=== PATIENT | male | born 1945 | race Caucasian/White ===

== ENCOUNTER 2017-07-19 19:40 | Emergency (ER) | payer MEDICARE ==
[~2017-07-19] VITALS: Ht 175.3 cm; Wt 79.4 kg
--- NOTE | ~2017-07-19 | CR127 ---
[facility]. [facility] A Service of [facility] & [facility] RADIOLOGY TEXT RESULTS PATIENT: BELKYS LEMUS LOCATION: SED : 44 UNIT #: [id number] AGE: [address]: Rose Sal MD SEX: M ORDER DR: [id number] [place] [id number] E MR#: [id number] Acc #: [id number] NAME: BELKYS LEMUS : 1945 SEX: M STUDY DATE/TIME: 07/19/2017 21:01 UNIT: SED ROOM: STUDY DESCRIPTION: CR Foot Complete Min 3 View Rt Attending Physician: Rose Sal M.D. Ordering Physician: Rose Sal M.D. Primary Care Physician: Allen Flynn M.D. MEDICAL IMAGING REPORT This report is preliminary unless electronic signature is present. EXAM Right foot 3 views HISTORY Foot pain for 1 week after injury. Bruising. FINDINGS The tarsal, metatarsal, and phalangeal elements are all anatomically normal in position and alignment. There are no articular defects. No fractures or radiopaque foreign bodies in the soft tissues are apparent. IMPRESSION Normal foot. Dictated by... Parrish Sanchez M.D. THIS IS AN ELECTRONICALLY VERIFIED REPORT Parrish Sanchez M.D. at 07/20/2017 2:21 PM DFL/aa TD: 07/20/2017 08:49 JOB #: [id number] MEDICAL IMAGING REPORT Page 1 of 1
--- NOTE | ~2017-07-19 | CR21 ---
[facility]. [facility] A Service of [facility] & [facility] RADIOLOGY TEXT RESULTS PATIENT: BELKYS LEMUS LOCATION: SED : 44 UNIT #: [id number] AGE: [address]: Rose Sal MD SEX: M ORDER DR: [id number] [place] [id number] E MR#: [id number] Acc #: [id number] NAME: BELKYS LEMUS : 1945 SEX: M STUDY DATE/TIME: 07/19/2017 21:01 UNIT: SED ROOM: STUDY DESCRIPTION: CR Ankle Min 3 Views Rt Attending Physician: Rose Sal M.D. Ordering Physician: Rose Sal M.D. Primary Care Physician: Allen Flynn M.D. MEDICAL IMAGING REPORT This report is preliminary unless electronic signature is present. EXAM Right ankle 3 views. HISTORY Ankle pain and swelling after injury 1 week ago. Bruising. FINDINGS AP, lateral, and oblique projections of the right ankle show satisfactory integrity of the joint mortise with a smooth articular surface. There is no identifiable fracture, dislocation, or radiopaque foreign body. IMPRESSION Normal right ankle. Dictated by... Parrish Sanchez M.D. THIS IS AN ELECTRONICALLY VERIFIED REPORT Parrish Sanchez M.D. at 07/20/2017 2:21 PM DFL/gz TD: 07/20/2017 08:38 JOB #: [id number] MEDICAL IMAGING REPORT Page 1 of 1
--- NOTE | ~2017-07-19 | US85 ---
[facility] A Service of [facility] RADIOLOGY TEXT RESULTS PATIENT: BELKYS LEMUS LOCATION: SED : 44 UNIT #: [id number] AGE: [address]: Rose Sal MD SEX: M ORDER DR: [id number] [address] [address] [id number] E MR#: [id number] Acc #: [id number] NAME: BELKYS LEMUS : 1945 SEX: M STUDY DATE/TIME: 07/19/2017 21:39 UNIT: SED ROOM: STUDY DESCRIPTION: [facility] St[facility] Attending Physician: Rose Sal M.D. Ordering Physician: Rose Sal M.D. Primary Care Physician: Allen Flynn M.D. MEDICAL IMAGING REPORT This report is preliminary unless electronic signature is present. EXAM Right lower extremity venous ultrasound. HISTORY Right lower extremity pain and swelling for 1 week. Bruising and swelling at ankle for 1 day. TECHNIQUE Venous ultrasound examination of the right lower extremity was performed using grayscale, spectral Doppler and color flow Doppler imaging. FINDINGS The examination is negative. There is no evidence of right lower extremity deep venous thrombus from the groin to the lower calf. Visualized greater saphenous vein is also patent. IMPRESSION Negative examination. No evidence of right lower extremity deep venous thrombosis. Dictated by... Parrish Sanchez M.D. THIS IS AN ELECTRONICALLY VERIFIED REPORT Parrish Sanchez M.D. at 07/20/2017 2:21 PM DFL/bd TD: 07/20/2017 08:54 JOB #: [id number] [facility] A Service [facility] RADIOLOGY TEXT RESULTS PATIENT: BELKYS LEMUS LOCATION: SED : 44 UNIT #: [id number] AGE: [address]: Rose Sal MD SEX: M ORDER DR: MEDICAL IMAGING REPORT Page 1 of 1
[2017-07-19] MEDS ORDERED: CLOPIDOGREL75 MG PO (19:58)
[2017-07-19] MEDS ORDERED: FLECAINIDE ACE100 MG PO (19:58)
[2017-07-19] MEDS ORDERED: NORVASC2.5 MG PO (19:59)
[2017-07-19] MEDS ORDERED: FLOMAX0.4 M1 PO (19:59)
[2017-07-19] MEDS ORDERED: DIOVAN80 M1 PO (19:59)
[2017-07-19] MEDS ORDERED: LIPITOR40 MG PO (20:00)
== END 2017-07-19 23:02 | disposition home or self-care (01) ==
LOC: SED 19:40
DX: S90.01XA Contusion of right ankle, initial encounter (principal); I25.10 Atherosclerotic heart disease of native coronary artery without angina pectoris; I10 Essential (primary) hypertension; F17.200 Nicotine dependence, unspecified, uncomplicated; W01.0XXA Fall on same level from slipping, tripping and stumbling without subsequent striking against object, initial encounter; Y92.009 Unspecified place in unspecified non-institutional (private) residence as the place of occurrence of the external cause
CPT/HCPCS: 73610; 73630; 93971; 99284